=== PATIENT | male | born 1965 | race Caucasian/White ===

== ENCOUNTER 2017-03-09 00:32 | Observation (INO) | payer OTHER ==
[2017-03-09] MEDS ORDERED: NS 0.9% 1000 ML* 1,000 ML IV ONE (00:49)
[2017-03-09] MEDS ORDERED: Ondansetron INJ* 2 MG/ML VIAL IV ONE (00:49)
[2017-03-09] MEDS ORDERED: Morphine INJ* 4 MG/ML 1 ML SYRINGE IV ONE (00:49)
[2017-03-09] MEDS ORDERED: Orphenadrine Citrate IV* 30 MG/ML 2 ML VIAL IV ONE (00:51)
[2017-03-09 01:14] LABS: Hematocrit 47 % (42-52); Hemoglobin 16.2 g/dl (14.0-18.0); Mean Corpuscular HGB Conc 35 g/dl (31-36); Mean Corpuscular Hemoglobin 31 pg (27-31); Mean Corpuscular Volume 90 fL (80-94); Mean Platelet Volume 8 um3 (7.4-10.4); Red Blood Count 5.23 10^6/ul (4.0-5.4); Red Cell Distribution Width 13 % (10.5-15)
[2017-03-09 01:29] LABS: Albumin 4.5 g/dL (3.2-5.2); BUN/Creatinine Ratio 17.5 (8-20); Calcium 9.1 mg/dL (8.6-10.3); EGFR African American 98.7 (>60); EGFR Non-African American 76.8 (>60); Globulin 2.5 g/dL (2-4); Potassium 3.9 mmol/L (3.5-5.0); Total Bilirubin 0.8 mg/dL (0.2-1.0)
[2017-03-09 03:03] LABS: Urine Bilirubin Negative (Negative); Urine Glucose Negative (Negative); Urine Nitrite Negative (Negative)
[2017-03-09] MEDS ORDERED: Diltiazem IV* 5 MG/ML 5 ML VIAL (for loading dose/IV Push) (25 MG) IV SLOW PU ONE ×2 (03:05→04:14)
[2017-03-09 04:55] LABS: Magnesium 1.9 mg/dL (1.9-2.7)
[2017-03-09] MEDS ORDERED: Diltiazem IV VIAL* 125 MG in D5W 100 ML BAG* 100 ML IV ONE (05:08)
[2017-03-09] MEDS ORDERED: Diltiazem DRIP* 100 MG/100 ML ADDV.BAG IVPB ONE ×2 (05:45→06:00)
--- NOTE | 2017-03-09 05:49 | ED ---
Kevin Paul Alfonso, scribed for Daniel Vogt on 03/09/17 at 0049 . Lower Extremity - HPI Summary HPI Summary: This patient is a 51 year old M BIBA to [facility] accompanied by with a chief complaint of RLE pain since one hour [employer]. He states I bent down to flush the toilet and I got immediate pain in my upper buttock and right leg. The CC is described as burning. Pt rates the pain 10/10 in severity. Symptoms aggravated by movement and alleviated by nothing. Pt reports decreased ROM in RLE. PMHx of sciatic problems. - History of Current Complaint Chief Complaint: EDExtremityLower Stated Complaint: BACK PAIN Hx Obtained From: Patient Onset of Pain: Immediate, Prior to Arrival Onset/Duration: Hours - 1 Severity Initially: Severe Severity Currently: Severe Pain Intensity: 10 Pain Scale Used: 0-10 Numeric Timing: Constant Location: Is Discrete @ - RLE and upper buttock Character Of Pain: Burning Associated Signs And Symptoms: Positive: Other - Decreased ROM Aggravating Factor(s): Movement Alleviating Factor(s): Nothing Able to Bear Weight: No - Allergies/Home Medications Allergies/Adverse Reactions: Allergies Allergy/AdvReac Type Severity Reaction Status Date / Time No Known Allergies Allergy Verified 05/10/15 15:38 PMH/Surg Hx/FS Hx/Imm Hx Musculoskeletal History: Reports: Other Musculoskeletal History - "sciatic problems" Sensory History: Denies: Hx Deafness Opthamlomology History: Denies: Hx Legally Blind Infectious Disease History: No Infectious Disease History: Reports: Hx Shingles Denies: Hx Clostridium Difficile, Hx Hepatitis, Hx Human Immunodeficiency Virus (HIV), Hx of Known/Suspected MRSA, Hx Tuberculosis, Hx Known/Suspected VRE , Hx Known/Suspected VRSA, History Other Infectious Disease, Traveled Outside the [place] in Last 30 Days - Family History Known Family History: Negative: Cardiac Disease - Social History Alcohol Use: Weekly Alcohol Amount: few week Substance Use Type: Reports: None Smoking Status (MU): Never Smoked Tobacco Review of Systems Negative: Fever Positive: Decreased ROM - RLE, Other - Positive RLE pain, and upper buttock pain. All Other Systems Reviewed And Are Negative: Yes Physical Exam Triage Information Reviewed: Yes Vital Signs On Initial Exam: Initial Vitals Temp Pulse Resp BP Pulse Ox 97.3 F 90 20 174/103 100 03/09/17 00:34 03/09/17 00:34 03/09/17 00:34 03/09/17 00:34 03/09/17 00:34 Vital Signs Reviewed: Yes Appearance: Positive: Well-Appearing, No Pain Distress Skin: Positive: Warm, Skin Color Reflects Adequate Perfusion, Dry Head/Face: Positive: Normal Head/Face Inspection Eyes: Positive: EOMI, YULISA ENT: Positive: Normal ENT inspection Neck: Positive: Supple, Nontender Respiratory/Lung Sounds: Positive: Clear to Auscultation, Breath Sounds Present Cardiovascular: Positive: RRR, Pulses are Symmetrical in both Upper and Lower Extremities Abdomen Description: Positive: Nontender, Soft Bowel Sounds: Positive: Present Musculoskeletal: Positive: Other - Tenderness at right flank and buttock area. No neurovascular deficit. Restricted ROM in right leg. Neurological: Positive: Normal, Sensory/Motor Intact, Alert, Oriented to Person Place, Time - Beatrice Coma Scale Coma Scale Total: 15 Diagnostics - Vital Signs Vital Signs Temp Pulse Resp BP Pulse Ox 03/09/17 00:34 97.3 F 90 20 174/103 100 - Laboratory Result Diagrams: 03/09/17 01:03 03/09/17 01:03 Lab Statement: Any lab studies that have been ordered have been reviewed, and results considered in the medical decision making process. - CT CT A/P CT Interpretation Completed By: Radiologist - No acute abdomen. - EKG 0246 Cardiac Rate: Tachycardia - BPM 114 EKG Rhythm: Atrial Fibrillation EKG Comparison: Other - A-fib new from 05/10/15 Lower Extremity Course/Dx - Course Assessment/Plan: 51 year old M BIBA to the ED with a CC of RLE pain since one hour [employer]. He states I bent down to flush the toilet and I got immediate pain in my upper buttock and right leg. Pt reports decreased ROM in RLE. PMHx of sciatic problems. CT A/P reveals no acute abdomen. An EKG reveals A-Fib. Consulted Dr. Vieira (hospitalist) at 0415 who recommends more Cardizem. Consulted Dr. Vieira again at 0511 who accepts patient for admission. Patient will be admitted with follow up from Dr. Vieira. Pt is agreeable with this plan. - Diagnoses Provider Diagnoses: Atrial fibrillation with RVR, Sciatica - Physician Notifications Discussed Care Of Patient With: Brian Vieira Time Discussed With Above Provider: 04:15 Instructed by Provider To: Other - Consulted Dr. Vieira (hospitalist) at 0415 who recommends more Cardizem. Consulted Dr. Vieira again at 0511 who accepts patient for admission. Discharge - Discharge Plan Condition: Stable Disposition: ADMITTED TO [facility] Referrals: Bigg Garcia MD [Primary Care Provider] - The documentation as recorded by the Kevin grijalva Alfonso accurately reflects the service I personally performed and the decisions made by Sin ortiz Emmanuel.
[2017-03-09] MEDS ORDERED: Cyclobenzaprine TAB* 10 MG PO PRN (06:00)
[2017-03-09] MEDS: HYDROmorphone* 1 MG/ML 1 ML SYR IV SLOW PU PRN ×2 (07:36→17:52)
[2017-03-09] MEDS: Aspirin TAB* 325 MG PO SCH ×2 (07:37→07:42)
[2017-03-09] MEDS: Diltiazem TAB* 60 MG PO SCH ×2 (07:37→11:57)
[2017-03-09] MEDS: Heparin VIAL(*) 5000 UNITS/ML VIAL (FIVE THOUSAND) SUBCUT SCH ×3 (07:42→21:55)
[2017-03-09 09:40] LABS: TSH (Thyroid Stimulating Horm) 2.48 mcIU/mL (0.34-5.60)
--- NOTE | 2017-03-09 11:19 | RAD ---
CLINICAL HISTORY: Right flank pain COMPARISON: None TECHNIQUE: Noncontrast CT examination of the abdomen and pelvis from the lung bases through the initial tuberosities. FINDINGS: VISUALIZED LUNG BASES: The visualized lung bases are grossly clear. There is no pleural effusion. ABDOMEN AND PELVIS: Evaluation of the solid organs and vasculature is limited without intravenous contrast. The pancreas and adrenal glands are grossly normal in appearance. The gallbladder is normal. The homogenously attenuating liver is top normal measuring 20.5 cm in greatest cephalocaudal dimension (coronal image 36). The homogenously attenuating spleen is top normal measuring just over 12 mm in greatest axial dimension. The kidneys are normal in appearance without focal mass, calcification or signs of hydronephrosis. The small and large bowel are not distended.The patient's normal appendix is identified in the right lower quadrant (axial image 128).. There is a mildly enlarged periportal lymph node measuring 11 x 27 mm in the axial plane (image 64 of 217). Top normal, but not pathologically enlarged retroperitoneal lymph nodes are seen adjacent to the aorta (coronal image 53) measuring up to 9 mm in short axis diameter. There is no gross mesenteric lymphadenopathy. The pelvic viscera is normal in appearance. The abdominal aorta and iliac arteries are normal in course and diameter. Degenerative changes include multilevel loss of intervertebral disc height involving the lower thoracic and lumbar spine, most severe at L5/S1 where there is near complete obliteration of the intervertebral disc space, endplate sclerosis and marginal osteophyte formation.There are no sinister bone lesions. IMPRESSION: 1. Top normal but not pathologically enlarged celiac and retroperitoneal lymph nodes as described above. Without prior CT imaging for comparison the chronicity and clinical significance of these are indeterminate. 2. Mild splenomegaly in otherwise normal-appearing solid organs. 3. No renal calculi or signs of hydroureter nephrosis. 4. Additional chronic findings as described above.
[2017-03-09] MEDS ORDERED: Magnesium Oxide TAB* 400 MG PO ONE (12:01)
[2017-03-09] MEDS ORDERED: Potassium Chlor TAB* 20 MEQ TAB.ER PO ONE (12:01)
--- NOTE | 2017-03-09 13:52 | PN ---
Subjective Date of Service: 03/09/17 Interval History: Patient seen this morning. Stated back pain has been improving. Was able to ambulate to the bathroom and back but feels he can't stand up straight for very long. Feels that he can feel some sensation in his chest that feels different with the AFib. Resolved with return to NSR. Family History: Unchanged from Admission Social History: Unchanged from Admission Past Medical History: Unchanged from Admission Objective Active Medications: Aspirin (Aspirin Tab*) 325 mg PO DAILY [facility] Cyclobenzaprine HCl (Flexeril Tab*) 10 mg PO TID PRN Diltiazem HCl (Cardizem Tab*) 60 mg PO Q6HR PEDRO Heparin Sodium (Porcine) (Heparin Vial(*)) 5,000 units SUBCUT Q8HR PEDRO Hydromorphone HCl (Dilaudid Iv*) 1 mg IV SLOW PU Q4H PRN Ketorolac Tromethamine (Toradol Inj*) 15 mg IV PUSH Q6H PRN Vital Signs 03/09/17 03/09/17 03/09/17 06:51 07:36 08:36 Pulse Rate 85 Respiratory 14 20 18 Rate Blood Pressure 150/97 (mmHg) Oxygen Devices in Use Now: None Appearance: Middle-aged, M, laying in bed in NAD Eyes: No Scleral Icterus Ears/Nose/Mouth/Throat: Mucous Membranes Moist Neck: NL Appearance and Movements; NL JVP Respiratory: Symmetrical Chest Expansion and Respiratory Effort, Clear to Auscultation Cardiovascular: - - IRIR, normal rhythm Abdominal: NL Sounds; No Tenderness; No Distention Lymphatic: No Cervical Adenopathy Extremities: No Edema, - - Negative straight leg raise Skin: No Rash or Ulcers Neurological: Alert and Oriented x 3 Result Diagrams: 03/09/17 01:03 03/09/17 01:03 Assess/Plan/Problems-Billing Assessment: pAFib, sciatic back pain in a 51 yo M - Patient Problems (1) Paroxysmal atrial fibrillation Current Visit: Yes Comment: Started on Diltiazem gtt overnight, became bradycardic this AM, gtt stopped and maintained on oral Diltiazem. Converted to NSR around [address] Rasheed who initially wanted to start the patient on xarelto with plans for possible cardioversion. Will discuss further. TSH WNL. Echocardiogram ordered. (2) Back pain Current Visit: Yes Comment: Seems like radiculopathy, continue supportive care /analgesia, improving (3) DVT prophylaxis Current Visit: Yes Comment: HSQ
--- NOTE | 2017-03-09 14:58 | HP ---
CC: Dr. Garcia * HISTORY AND PHYSICAL: DATE OF ADMISSION: 03/09/17 PRIMARY CARE PHYSICIAN: Dr. Garcia CHIEF COMPLAINT: Back pain. HISTORY OF PRESENT ILLNESS: The patient is a 51-year-old gentleman who says this afternoon he bent over to hit the hip on a toilet and he had sudden onset of pain at the top of his right buttocks, shooting down his right leg. It was excruciating. It was 10/10 in severity. He literally could not get up off the floor. His saw him writhing in pain and called 911. The patient came to the ER, was evaluated, given morphine and his pain did get better, but was found to be in rapid atrial fibrillation at the same time. He had no chest pain , no shortness of breath, no palpitations. His pain is somewhat better, but still quite severe. He also notes that he is urinating more at this time, but he is able to control his urine. There is no incontinence. PAST MEDICAL HISTORY: He has no significant past medical history. MEDICATIONS: He is on no medications. ALLERGIES: He has no known drug allergies. FAMILY HISTORY: Mother is alive at 84, has back problems. Father at 91 of lung cancer. SOCIAL HISTORY: No tobacco. He drinks about 3 beers a week. Occasional marijuana. 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 He is , with 2 children. REVIEW OF SYSTEMS: A 14-point review of systems is completed with the patient. All pertinent positives and negatives are in the history of present illness, otherwise negative. PHYSICAL EXAMINATION GENERAL: A very pleasant gentleman lying in bed, in no acute distress. VITAL SIGNS: Temperature is 97.3 degrees, heart rate is 95 beats per minute, respiratory rate 14 breaths per minute, pulse ox 96%, blood pressure 151/93. HEENT: Normocephalic and atraumatic. Pupils are equal, round and reactive to light. Moist mucous membranes. NECK: Supple. No JVD, bruits, palpable thyroid or lymphadenopathy. CHEST: Clear to auscultation and percussion bilaterally. CARDIOVASCULAR: S1, S2 appreciated. Irregularly irregular rhythm. ABDOMEN: Positive bowel sounds in all 4 quadrants. Soft, nontender, and nondistended. No hepatosplenomegaly. EXTREMITIES: No cyanosis, clubbing, or edema. +2 peripheral pulses bilaterally. Straight leg testing at both sides. NEUROLOGIC: Alert and oriented x3. Moves all extremities. SKIN: No rashes or abnormalities. LABORATORY DATA: White count 8.0, hemoglobin 16.2, hematocrit 47, platelets 169. Sodium 135, potassium 3.9, chloride 105, CO2 22, BUN 18, creatinine 1.03, glucose 142. Troponin is 0.00. Urinalysis is unremarkable. Abdomen and pelvic CT shows no acute processes. EKG shows AFib with rapid ventricular response. ASSESSMENT AND PLAN: 1. AFib with rapid ventricular response. The patient has received 2 doses of 10 mg IV Cardizem. He is now on 5 mg per hour in the Cardizem drip and his heart rate is now in the 90s. He denies any palpitations or chest pain. I will continue the drip and transition him over to p.o. Cardizem 60 mg p.o. q.6 hours. Hopefully, we can hold the IV drip at that time. I do not think he warrants Coumadin at this time. His CHADS2 score is 0. He will benefit from echocardio-gram. Hopefully, we can approve him getting home later today and he follows his PCP as an outpatient. I also think his heart rate is quite fast because of the significant pain he has had from sciatica. 2. Sciatica. We will place the patient on Dilaudid 1 mg IV q. hour p.r.n., Toradol 50 mg IV q.6 hours p.r.n. and Flexeril 10 mg p.o. t.i.d. p.r.n. I will ambulate the patient and hopefully he will be significantly improved in short time. 3. DVT prophylaxis: Heparin subcu. 4. FEN: Regular diet. 5. The patient is a full code. TIME SPENT: Over 75 minutes were spent on this H and P; more than 40 minutes which is spent direct [id number] contact with the patient in evaluation, physical exam, counseling, and coordination of care. [id number]/[facility] #: [id number] MTDD
[2017-03-09] MEDS: Ketorolac INJ* 15 MG/ML 1 ML VIAL IV PUSH PRN ×2 (15:29→23:23)
--- NOTE | 2017-03-09 16:27 | CONSULT ---
Subjective Date of Service: 03/09/17 Interval History: Admission Date: 03/09/17 Date of consult: 03/09/2017 Service: Hospitalist PMD: Dr. Garcia (will be seeing Dr. Ball soon to establish with [place] system as well) CHIEF COMPLAINT: Back pain. Reason for consult: Atrial fibrillation. 51 year old man found with rapid atrial fibrillation in the setting of severe back pain, reverted to normal sinus rhythm on diltiazem gtt. He had no chest pain, no shortness of breath, lightheadedness or syncope. He did have some palpitations associated with AFib and could distinguish when he converted on monitor. He denies any history of CHF, HTN, DM, CVA/TIA or vascular disease. His BP was elevated here during pain but now normalized with better pain control. This is late documentation but he had an echo on 03/10/2017 with normal LV size and function, mild basal septal hypertrophy and no significant valvular abnormalities noted. 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 It does not feel like this episode did. PAST MEDICAL HISTORY: He has no significant past medical history. MEDICATIONS: He is on no medications. ALLERGIES: He has no known drug allergies. FAMILY HISTORY: Mother is alive at 84, has back problems. Father at 91 of lung cancer. SOCIAL HISTORY: No tobacco. He drinks about 3 beers a week. Occasional marijuana. 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 Medications Active Medications: Aspirin (Aspirin Tab*) 325 mg PO DAILY [facility] Last Admin: 03/09/17 07:42 Dose: Not Given Cyclobenzaprine HCl (Flexeril Tab*) 10 mg PO TID PRN PRN Reason: SPASMS Heparin Sodium (Porcine) (Heparin Vial(*)) 5,000 units SUBCUT Q8HR [facility] Last Admin: 03/09/17 12:47 Dose: Not Given Hydromorphone HCl (Dilaudid Iv*) 1 mg IV SLOW PU Q4H PRN PRN Reason: PAIN Last Admin: 03/09/17 07:36 Dose: 1 mg Ketorolac Tromethamine (Toradol Inj*) 15 mg IV PUSH Q6H PRN PRN Reason: PAIN Last Admin: 03/09/17 15:29 Dose: 15 mg Review of Systems - Measurements Intake and Output: Intake and Output Last 24 Hours 03/07/17 03/08/17 03/09/17 03/10/17 06:59 06:59 06:59 06:59 Intake Total 265 Balance 265 Weight 227 lb Intake: Oral 265 - Review of Systems Constitutional Symptoms: Negative: Weight Gain, Weight Loss, Weakness, Fatigue, Fever, Night Sweats, Unexplained Falls Dermatology: Negative: Rash, Skin Lesions HEENT: Negative: Change in Hearing, Vertigo Eyes: Negative: Change in Vision, Double Vision Thyroid: Positive: Palpitations Negative: Cold Intolerance, Heat Intolerance, Sweatiness, Tremor, Frequent Defecation, Constipation, Weight Loss, Weight Gain Pulmonary: Negative: Cough, Sputum, Hemoptysis, Wheezing, Respiratory Distress, Shortness of Breath, COPD, Asthma, Exercise Intolerance Cardiology: Positive: Palpitations Negative: Chest Pain, Shortness of Breath, Swelling of Ankles, Peripheral Vascular Dis, Edema, Faintness, Syncope, Claudication, Paroxysmal Nocturnal Dyspnea, Orthopnea Gastroenterology: Negative: Abdominal Pain, Nausea, Vomiting, Anorexia Genital - Urinary: Negative: Dysuria, Hematuria Musculoskeletal: Negative: Joint Pain, Joint Stiffness, Osteoporosis, Low Back Pain Endocrinology: Negative: Thyroid Problems, Obesity, Diabetes, Hyperglycemia, Hypoglycemia, Polydipsia, Polyuria Hematologic/Lymphatic: Negative: Anemia, Easy Brusing, Hx Leukemia, Hx Lymphoma, Use of Anticoagulant, Use of Antiplatelet Drugs Neurology: Negative: Headaches, Migraines, Change in Vision, Diplopia, Dizziness, Change in Balancing, Change in Coordination, Change in Memory, Change in Speech , Change in Sphincter Function, Change in Walking Psychiatry: Negative: Sexual Dysfunction, Weight Change, Guilt Feelings, Tearfulness, Unusual Fatigue Allergic/Immunologic: Negative: Hx Anaphylaxis, Hx Angioedema, Hx Environmental Allergies, Hx Seasonal Allergies, Hx HIV, Immunocompromise Review of Systems Statement: All other review of systems negative, unless stated above. Objective Vital Signs: Temp Pulse Resp BP Pulse Ox 97.8 F 71 18 123/70 97 03/09/17 15:13 03/09/17 15:13 03/09/17 15:13 03/09/17 15:13 03/09/17 15:13 Oxygen Devices in Use Now: None Appearance: nad, pleasant Ears/Nose/Mouth/Throat: Clear Oropharnyx Neck: NL Appearance and Movements; NL JVP Respiratory: Symmetrical Chest Expansion and Respiratory Effort, Clear to Auscultation Cardiovascular: NL Sounds; No Murmurs; No JVD, RRR, No Edema Abdominal: NL Sounds; No Tenderness; No Distention Extremities: No Edema Skin: No Rash or Ulcers Neurological: Alert and Oriented x 3 Laboratory Results: 03/09/17 01:03 03/10/17 04:55 Total Bilirubin 0.80 mg/dL (0.2-1.0) 03/09/17 01:03 AST 15 U/L (13-39) 03/09/17 01:03 ALT 23 U/L (7-52) 03/09/17 01:03 Alkaline Phosphatase 63 U/L (34-104) 03/09/17 01:03 B-Natriuretic Peptide 35 pg/mL (-100) 03/09/17 01:03 Total Protein 7.0 g/dL (6.4-8.9) 03/09/17 01:03 Albumin 4.5 g/dL (3.2-5.2) 03/09/17 01:03 Globulin 2.5 g/dL (2-4) 03/09/17 01:03 Albumin/Globulin Ratio 1.8 (1-3) 03/09/17 01:03 TSH 2.48 mcIU/mL (0.34-5.60) 03/09/17 01:03 03/09/17 01:03 Troponin I 0.00 EKG Data: EKG 03/09/2017: AFib, LVH (no repolarization changes) Assessment/Plan Jake Quinteros is a 51 year old man found with an episode of vagal/adrenergic mediated symptomatic rapid atrial fibrillation in the setting of severe back pain reverted to normal sinus rhythm after receiving diltiazem. [id number] score of 0 and no significant structural heart or valvular heart disease by echocardiogram. - Evidence is mixed on risk/benefit favorability, but would start aspirin 81 mg po daily - Needs follow up with PMD to monitor for development of hypertension once back to baseline status Thank you for allowing me to participate in the cardiovascular care of this patient. Please do not hesitate to contact me with questions or concerns.
[2017-03-10 05:32] LABS: BUN/Creatinine Ratio 14.7 (8-20); Calcium 8.8 mg/dL (8.6-10.3); EGFR African American 99.8 (>60); EGFR Non-African American 77.6 (>60)
[2017-03-10] MEDS: HYDROmorphone* 1 MG/ML 1 ML SYR IV SLOW PU PRN (06:00)
[2017-03-10] MEDS: Heparin VIAL(*) 5000 UNITS/ML VIAL (FIVE THOUSAND) SUBCUT SCH (06:02)
[2017-03-10 08:11] VITALS: BP 129/77
--- NOTE | 2017-03-10 08:35 | PN ---
Subjective Date of Service: 03/10/17 Interval History: Patient seen this morning. Reports pain has been tolerable, has been moving a bit in the room, not ambulating much outside in the hallway. No chest pain, SOB , palpitations. Breathing feels normal. Reports slight numbness on medial aspect of R knee. Family History: Unchanged from Admission Social History: Unchanged from Admission Past Medical History: Unchanged from Admission Objective Active Medications: Cyclobenzaprine HCl (Flexeril Tab*) 10 mg PO TID PRN Heparin Sodium (Porcine) (Heparin Vial(*)) 5,000 units SUBCUT Q8HR PEDRO Hydromorphone HCl (Dilaudid Iv*) 1 mg IV SLOW PU Q4H PRN Ketorolac Tromethamine (Toradol Inj*) 15 mg IV PUSH Q6H PRN Vital Signs 03/09/17 03/09/17 03/09/17 08:36 08:58 09:00 Temperature Pulse Rate 73 80 Respiratory 18 17 20 Rate Blood Pressure 119/83 (mmHg) O2 Sat by Pulse 92 94 Oximetry 03/09/17 03/09/17 03/09/17 10:00 10:28 10:58 Temperature Pulse Rate 86 77 92 Respiratory 22 21 11 Rate Blood Pressure 122/69 126/79 (mmHg) O2 Sat by Pulse 95 94 97 Oximetry 03/09/17 03/10/17 03/10/17 23:21 03:24 06:00 Temperature 98.0 F 98.0 F Pulse Rate 56 63 Respiratory 18 14 13 Rate Blood Pressure 147/92 138/83 (mmHg) O2 Sat by Pulse 98 99 Oximetry 03/10/17 03/10/17 06:52 07:10 Temperature 97.4 F Pulse Rate 65 Respiratory 18 16 Rate Blood Pressure 129/77 (mmHg) O2 Sat by Pulse 96 Oximetry Oxygen Devices in Use Now: None Appearance: Middle-aged, M, laying in bed in NAD Eyes: No Scleral Icterus Ears/Nose/Mouth/Throat: Mucous Membranes Moist Neck: NL Appearance and Movements; NL JVP Respiratory: Symmetrical Chest Expansion and Respiratory Effort, Clear to Auscultation Cardiovascular: NL Sounds; No Murmurs; No JVD, RRR Abdominal: NL Sounds; No Tenderness; No Distention Lymphatic: No Cervical Adenopathy Extremities: No Edema Skin: No Rash or Ulcers Neurological: Alert and Oriented x 3, - - slight decreased sensation over R medial knee Result Diagrams: 03/09/17 01:03 03/10/17 04:55 Assess/Plan/Problems-Billing Assessment: pAFib, sciatic back pain in a 51 yo M - Patient Problems (1) Paroxysmal atrial fibrillation Current Visit: Yes Comment: Started on Diltiazem gtt 03/09, became bradycardic , then maintained on oral Diltiazem. Converted to NSR around 1 PM on 03/09. Cardiac meds now held. Echo done pending read. Dr. Rasheed to see the patient toda. TSH WNL. Holding on AC for now. (2) Back pain Current Visit: Yes Comment: Seems like radiculopathy, continue supportive care /analgesia, improving (3) DVT prophylaxis Current Visit: Yes Comment: HSQ Status and Disposition: Potential discharge today
[2017-03-10] MEDS ORDERED: Gabapentin CAP(*) 100 MG PO SCH (09:00)
--- NOTE | 2017-03-10 10:53 | ECHO ---
Patient: KIM KRISHNAMURTHY [facility] Rec#: [id number] : 1965 Date: 03/10/2017 Age: 51y Height: 182.88 cm / 72.0 in Weight: 104.33 kg / 229.9 lbs Sex: M BSA: 2.26 Room#: 431 Admit Date#: 03/09/2017 Type: Inpatient Referring: KALEB GARAY MD Reading: Harjit Rasheed DO Hand Finisher: Liyah Jurado RDCS CC: Bigg Garcia MD Transthoracic Echocardiogram Indication: New A-fib BP: 138/83 HR: 64 Rhythm: NSR Findings History: To ED with back pain and found in A-fib. Converted to NSR with Diltezem gtt. Technical Comments: The study quality is good. Completed at 0851. Left Ventricle: The left ventricular chamber size is normal. Global left ventricular wall motion and contractility are within normal limits.Mild basal septal hypertrophy There is normal left ventricular systolic function. The estimated ejection fraction is 60-65%. Normal left ventricular diastolic filling is observed. Left Atrium: The left atrium is normal in size. Right Ventricle: The right ventricular chamber size and systolic function are within normal limits. Right Atrium: The right atrium appears normal. Aortic Valve: The aortic valve is trileaflet. There is no evidence of aortic valve thickening. There is a trace of aortic regurgitation. There is no evidence of aortic stenosis. Mitral Valve: The mitral valve leaflets appear normal. There is a trace of mitral regurgitation. There is no evidence of mitral stenosis. Tricuspid Valve: The tricuspid valve leaflets are normal. There is trace tricuspid regurgitation. No pulmonary hypertension is noted. There is no tricuspid stenosis. Pulmonic Valve: The pulmonic valve appears normal. There is no evidence of pulmonic regurgitation. There is no pulmonic stenosis. Pericardium: There is no significant pericardial effusion. Aorta: There is no dilatation of the ascending aorta. There is no dilatation of the aortic arch. There is no dilation of the aortic root. Pulmonary Artery: The main pulmonary artery is not well visualized. Venous: The venous system is not well visualized. Conclusions The left ventricular chamber size is normal. Global left ventricular wall motion and contractility are within normal limits. Mild basal septal hypertrophy There is normal left ventricular systolic function. The estimated ejection fraction is 60-65%. The left atrium is normal in size. The right ventricular chamber size and systolic function are within normal limits. No significant valvular abnormalities noted. No prior studies available for comparison at time of interpretation Measurements Name Value Normal Range RVIDd (AP) 2D 2.6 cm (0.9 - 2.6) RVDdMajor (2D) 3.2 cm (2.2 - 4.4) RAd ISD 4CH 5.3 cm (3.4 - 4.9) RA (A4C)W 4.1 cm (2.9 - 4.6) IVSd (2D) 1 cm (0.6 - 1) LVPWd (2D) 0.9 cm (0.6 - 1) LVIDd (2D) 5 cm (3.6 - 5.4) LVIDs (2D) 3.1 cm - LV FS (2D) 38 % (25 - 45) Aortic Annulus 2 cm (1.4 - 2.6) Ao root diameter (2D) 3 cm (2.1 - 3.5) Ascending Ao 3 cm (2.1 - 3.4) Aortic arch 2.7 cm (1.8 - 3.4) Descending Ao 0.8 cm - LA dimension (AP) 2D 3.6 cm (2.3 - 3.8) LAd ISD 4CH 4.8 cm (2.9 - 5.3) LA ISD 4CH W 3.5 cm (2.5 - 4.5) Name Value Normal Range LA ESV SP 4CH (A/L) 34 ml - LA ESV SP 2CH (A/L) 76 ml - LA ESV BP (A/L) 52 ml - LA ESV BP (A/L) index 23.12 ml/m2 - LA ESV SP 4CH (MOD) 29 ml - LA ESV SP 2CH (MOD) 66 ml - Name Value Normal Range MV E-wave Vmax 1 m/sec - MV deceleration time 131 msec - MV A-wave Vmax 0.6 m/sec - MV E:A ratio 1.56 ratio - LV septal e' Vmax 0.11 m/sec - LV lateral e' Vmax 0.14 m/sec - LV E:e' septal ratio 9.09 ratio - LV E:e' lateral ratio 7.14 ratio - Name Value Normal Range AV Vmax 1.2 m/sec - AV VTI 25.4 cm - AV peak gradient 5.79 mmHg - AV mean gradient 2.78 mmHg - LVOT Vmax 0.9 m/sec - LVOT VTI 20.3 cm - LVOT peak gradient 3.56 mmHg - LVOT mean gradient 1.5 mmHg - Name Value Normal Range TR Vmax 2.6 m/sec - TR peak gradient 28 mmHg - Name Value Normal Range PV Vmax 0.8 m/sec - PV peak gradient 2.83 mmHg -
--- NOTE | 2017-03-11 12:52 | DS ---
CC: Dr. Garcia * DISCHARGE SUMMARY: DATE OF ADMISSION: 03/09/17 DATE OF DISCHARGE: 03/10/17 PRIMARY CARE PHYSICIAN: Dr. Garcia. CONSULTANTS DURING HOSPITALIZATION: Dr. Harjit Rasheed, Cardiology. PRINCIPAL DISCHARGE DIAGNOSES: 1. Back pain secondary to radiculopathy. 2. Atrial fibrillation. DISCHARGE MEDICATIONS: 1. Aspirin 81 mg by mouth daily. 2. Flexeril 10 mg by mouth 3 times daily as needed for pain. 3. Gabapentin 200 mg by mouth times daily. 4. Ibuprofen 400 mg every 6 hours as needed for pain. STUDIES DONE DURING HOSPITALIZATION: 1. CT abdomen and pelvis without contrast. Impression: Top normal but not pathologically enlarged celiac and retroperitoneal lymph nodes, mild splenomegaly. 2. Transthoracic echocardiogram. Conclusion: Left ventricular chamber size is normal, global left ventricular wall motion and contractility within normal limits, mild basal septal hypertrophy, estimated ejection fraction is 60% to 65% , normal left atrium, right ventricular chamber size and systolic function are within normal limits, no significant valvular abnormalities noted. HISTORY OF PRESENT ILLNESS AND HOSPITAL SUMMARY: Please see the full history and physical by Dr. Brian Vieira for full details. Briefly, Mr. No is a 51 -year- old male with no past medical history, who presented to the hospital with buttock pain radiating down the leg that had been going on for about a week prior to admission; however, significantly worsened. He was evaluated in the emergency department and an EKG subsequently showed him to be in rapid atrial fibrillation, which is a new diagnosis for the patient. The patient's back pain was felt to be due to radiculopathy and was treated with analgesics and improved. In regards to the patient's atrial fibrillation, he was started on diltiazem drip. Over the course of the day, he became slightly bradycardic, so the drip was stopped, he was transitioned to oral diltiazem. He subsequently converted back to normal sinus rhythm. The patient had a TSH checked that was normal. His electrolytes were relatively normal as well. He had an echocardiogram that showed no significant cardiac pathology. Dr. Rasheed evaluated the patient and felt that at this time, we should continue him on baby aspirin daily and he should follow up closely with his PCP to make sure he does not have any untreated hypertension, as his blood pressures initially were elevated here; however, this was in the setting of pain and since normalized. The patient will be discharged home with analgesics for his back pain. TIME SPENT: Total time spent on this discharge 45 minutes. This is a summary of the hospitalization. Please see the full medical record for further details. [id number]/CPS #: [id number] MTDD
== END 2017-03-10 13:10 | disposition home or self-care (01) ==
LOC: ED 00:32 → MEDTELE 05:45
PROVIDERS: ADMIT Internal Medicine; ATTEND Hospitalist
DX: I48.0 Paroxysmal atrial fibrillation (principal); M54.41 Lumbago with sciatica, right side; R16.1 Splenomegaly, not elsewhere classified; I44.4 Left anterior fascicular block; I45.81 Long QT syndrome; Z79.82 Long term (current) use of aspirin; Z79.899 Other long term (current) drug therapy
CPT/HCPCS: 36415; 74176; 80048; 80053; 81003; 83036; 83690; 83735; 83880; 84443; 84484; 85025; 93005; 93306; 96372; 96374; 96375; 96376; 99283; A9270-GY; G0378; J1170; J1644; J1885; J2270; J2360; J2405